=== PATIENT | male | born 2000 | race Caucasian/White ===

== ENCOUNTER → 2024-01-11 11:08 | Outpatient (REF) | payer OTHER, SELFPAY | LOC: RCS 11:08 | PROVIDERS: ATTENDING PHYSICIAN Internal Medicine Cardiovascular Disease; FAMILY PHYSICIAN Family Medicine | DX: R94.31 Abnormal electrocardiogram [ECG] [EKG] (principal); Z86.711 Personal history of pulmonary embolism; Z86.69 Personal history of other diseases of the nervous system and sense organs | CPT/HCPCS: 93306 ==

== ENCOUNTER 2024-03-28 15:48 | Emergency (ER) | payer OTHER, SELFPAY ==
[2024-03-28 15:51] VITALS: BP 155/77
--- NOTE | 2024-03-28 17:47 | ED.GENMED ---
History of Present Illness
General
Chief Complaint: Skin Problem
Source: patient
Exam Limitations: none
Time Seen by Provider: 03/28/24 17:38
Nursing documentation reviewed up to this point in time: agreed with
History of Present Illness
History of Present Illness:
Patient is a 23-year-old male with past medical history of Paget Lucero syndrome, pulmonary embolism presents to the ED for evaluation. Patient was told by his customer service trainer that he has bruise to his right upper back. Patient denies any
injury. 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 His mom is at bedside and they tried to get an appointment with PCP but they were sent here
to the ER for blood work. He denies any pain injury. He denies any hematuria black bleeding stools. No other complaints of bleeding. As document he does have a history of pulmonary embolism but is no longer blood thinners.
Review of Systems
Review of Systems
Allergies reviewed?: Yes
All Other Systems: ROS reviewed and negative except as documented in HPI and ROS
Constitutional: Reports no symptoms; Denies fever, fatigue or chills
EENT: Reports other (no report of nosebleeds )
Respiratory: Reports no symptoms; Denies trouble breathing
Cardiac: Reports no symptoms
ABD/GI: Reports no symptoms; Denies black stools
: Reports no symptoms; Denies bleeding or dark urine
Skin: Reports other (bruise to right upper back )
Neurological: Reports no symptoms
Psychiatric: Reports no symptoms
Phy Exam
General Physical Exam
General Presentation: no apparent distress
General age: appears stated age
General Skin: warm and dry
General Habitus: normal
General Mental: alert
General Hydration: appears well hydrated
Cardiovascular Exam
Cardiovascular Exam: regular rate/rhythm, no murmur and normal peripheral pulses
Pulmonary Exam
Pulmonary Exam: lungs clear and no respiratory distress
Neurological Exam
Neurological Exam: alert and oriented x3
Musculoskeletal Exam
Musculoskeletal Exam: other (+ ecchymosis to right upper back nontender full range of motion to right arm and shoulder without discomfort)
Skin Exam
Skin Exam: normal color and warm/dry
Psychiatric Exam
Psychiatric Exam: normal mood/affect
Course
Orders/Labs/Results
Orders:
Orders
03/28/24 17:55
Complete Blood Count/With Diff Urgent
Comprehensive Metabolic Panel Urgent
PTT Urgent
Prothrombin Time Urgent
Abnormal Lab Results
03/28/24
17:55
MCV 79.7 L fL
(80.0-94.0)
BUN 21 H mg/dl
(9-20)
03/28/24 17:55
03/28/24 17:55
Vital Signs
Initial and Last Documented VS:
Initial Vital Signs
Temp Pulse Resp BP Pulse Ox
98.6 F 70 20 155/77 97
03/28/24 15:51 03/28/24 15:51 03/28/24 15:51 03/28/24 15:51 03/28/24 15:51
Last Documented Vital Signs
Temp Pulse Resp BP Pulse Ox
98.6 F 70 16 155/77 97
03/28/24 15:51 03/28/24 15:51 03/28/24 18:15 03/28/24 15:51 03/28/24 15:51
MDM/Problems Addressed
MDM/Problems Addressed:
Patient is a 23-year-old male who is a pastrycook's assistant at local [employer] and bruising was noticed to his right upper back by his customer service trainer. He has no injury. He has been pitching. As document he does have history of PE with Paget Schroetter
syndrome however no longer on thinners. Pt presents awake alert no acute distress no obvious tenderness or pain with range of motion to his arm. There is small ecchymosis to present upper back as documented. Labs were checked including coags
and hemoglobin all which were normal. Case of the physician stable for discharge home . will have f/u w/ pcp.
*Critical Care Note
Total Time (30-74mins, 75-104mins- exclusive of procedures): Not Applicable
ED Attending Note
-
Portions of this chart may have been created with voice recognition software.� Occasional wrong word or��sound alike� substitutions may have occurred due to the inherent limitations of voice recognition software.
Discharge Plan
Departure
Patient Disposition: Home (Routine Discharge)
Date of Disposition: 03/28/24
Time of Disposition: 19:30
Patient with high blood pressure during this ER visit?: Yes
Condition: Fair
Covid-19: Not Applicable
Discharge Problem:
Bruise
Instructions: Minor contusion - ED discharge instructions, BLOOD PRESSURE
Prescriptions:
No Action
aspirin [Adult Aspirin Regimen] 81 MG tablet,delayed release (DR/EC)
81 mg PO DAILY
bacitracin-polymyxin B 3.5 GM ointment
1 applic RIGHT EYE Q1
Referrals:
Huber Fraag, DO [Family Provider] -
Activity Restrictions/Additional Instructions:
Blood work was normal including normal hemoglobin and normal platelet along with normal clotting.
Follow-up with family doctor for reevaluation.
return if any worsening of symptoms.
Interventions
Interventions:
*Risk Screen - Suicide Last Done: 03/28/24 18:14
*General Assessment Last Done: 03/28/24 15:51
*Neglect/Abuse Screening Last Done: 03/28/24 18:14
ED- Fall Risk Assessment Last Done: 03/28/24 18:14
*Nursing Disposition Last Done: 03/28/24 19:38
ED-Skin Assessment Last Done: 03/28/24 18:14
Discharge Date and Time
Discharge Date/Time: 03/28/24 19:39
Print Language: [place]
[2024-03-28 18:03] LABS: % Eosinophils 2.7 % (0-6); % Immature Granulocytes 0.3 % (0-0.5); % Lymphocytes 27.3 % (20.5-51.1); % Neutrophils 62.7 % (42.2-75.2); Absolute Basophils 0.1 10^3/uL (0-0.2); Absolute Eosinophils 0.2 10^3/uL (0-0.7); Absolute Lymphocytes 1.7 10^3/uL (1.2-3.4); Absolute Monocytes 0.4 10^3/uL (0.1-0.6); Absolute Neutrophils 3.9 10^3/uL (1.4-6.5); Hematocrit 45.6 % (39.0-52.0); Hemoglobin 15.7 g/dL (13.0-18.0); Mean Corp Hgb Conc. 34.4 g/dL (33.0-37.0); Mean Corpuscular Hgb 27.4 pg (27.0-31.0); Mean Corpuscular Volume 79.7 fL (80.0-94.0); Nucleated Red Blood Cells % 0 % (-); Platelet Count 180 10^3/uL (130-400); Red Blood Cell Count 5.72 10^6/uL (4.70-6.10); Red Cell Dist. Width 12.9 % (11.5-14.5); White Blood Cell Count 6.3 10^3/uL (4.8-10.8)
[2024-03-28 18:14] LABS: APTT 33.2 Sec (23.4-35.0); INR 1.09; PT 14.4 Sec (11.4-14.6)
[2024-03-28 18:27] LABS: ALT (SGPT) 38 U/L (0-50); AST (SGOT) 40 U/L (17-59); Albumin 4.8 g/dl (3.5-5.0); Alkaline Phosphatase 62 U/L (38-126); Blood Urea Nitrogen 21 mg/dl (9-20); Calcium 9.2 mg/dl (8.4-10.2); Carbon Dioxide 29 mmol/L (22-30); Chloride 101 mmol/L (98-107); Glucose 93 mg/dl (70-99); Potassium 4.2 mmol/L (3.5-5.1); Sodium 140 mmol/L (135-145); Total Bilirubin 0.5 mg/dl (0.2-1.3); Total Protein 6.9 g/dl (6.3-8.2); eGFR > 60.00
== END 2024-03-28 19:39 | disposition home or self-care (01) ==
LOC: EMR 15:48
PROVIDERS: Nurse Practitioner; EMERGENCY PHYSICIAN Student in an Organized Health Care Education/Training Program; FAMILY PHYSICIAN Family Medicine
DX: S20.221A Contusion of right back wall of thorax, initial encounter (principal); X58.XXXA Exposure to other specified factors, initial encounter; Z86.711 Personal history of pulmonary embolism
CPT/HCPCS: 99283; 80053; 85025; 85610; 85730